=== PATIENT | male | born 1950 | race Caucasian/White ===

== ENCOUNTER 2024-07-19 11:58 | Outpatient (CLI) | payer OTHER, SELFPAY ==
--- NOTE | ~2024-07-19 | XR_ITS ---
XR knee LT min 4V 07/19/2024 12:35 Indication: Left knee arthritis. Procedure: 4 views left knee Comparison: No prior studies for comparison. Findings: There is a left total knee arthroplasty. Prosthesis well seated. No fracture or traumatic m alalignment. 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 There is a suprapatellar joint effusion. Impression: 1: Small-moderate joint effusion. Reviewed, dictated and finalized at location B. Impression: 1: Small-moderate joint effusion.
--- NOTE | ~2024-07-19 | XR_ITS ---
XR hip LT min 2V 07/19/2024 12:35 Indication: Osteoarthritis of the left hip Procedure: 2 views left hip Comparison: No prior studies for comparison. Findings: There is mild osteoarthritis of the left hip. No fracture, subluxation or dislocation. No s ignificant soft tissue abnormality. No foreign bodies. Impression: 1: Mild osteoarthritis of the left hip. Reviewed, dictated and finalized at location B. Impression: 1: Mild osteoarthritis of the left hip.
== END 2024-07-19 11:59 | disposition home or self-care (01) ==
LOC: MICIMG 12:06
PROVIDERS: PCP Anesthesiology Pain Medicine; Visit Provider Anesthesiology Pain Medicine
DX: M16.12 Unilateral primary osteoarthritis, left hip (principal); M25.462 Effusion, left knee
CPT/HCPCS: 73502; 73564